=== PATIENT | female | born 1940 | race Caucasian/White ===

== ENCOUNTER 2017-05-09 09:20 | Emergency (ER) | payer MEDICARE, OTHER ==
[~2017-05-09] VITALS: Ht 170.2 cm; Wt 102.1 kg
[~2017-05-09 09:20] MED LIST: ALL DAY ALLERGY10 M3 PO; ASPIRIN EC81 MG PO; COD LIVER OIL1 EAC1 PO; CRESTOR10 MG PO; LEVOTHYROXINE88 MCG PO; LOSARTAN-HCTZ1 EAC2 PO; METFORMIN HCL1000 MG PO; METOPROLOL TART25 MG PO; MULTI VITAMIN1 EACH PO; OSTERA TABLET1 EACH PO; ZETIA10 MG PO
[2017-05-09] MEDS ORDERED: CATAPRES0.1 MG PO (10:47)
--- NOTE | 2017-05-09 20:38 | EKG ---
[facility] [address] [place] [address] Signed Atrial-paced rhythm with prolonged AV conduction Left axis deviation Right bundle branch block Left ventricular hypertrophy with repolarization abnormality Abnormal ECG No previous ECGs available Confirmed by RICHIE DEL ROSARIO MD ([id number]) on 05/09/2017 8:38:40 PM Electronically Signed By: RICHIE DEL ROSARIO MD 05/09/17 2038 PATIENT NAME: YAZAN MCKNIGHT SUSAN Electrocardiogram DATE OF : 38 PHYSICIAN: RICHIE DEL ROSARIO MD REPORT #: [id number] REPORT IS CONFIDENTIAL AND NOT TO BE RELEASED WITHOUT AUTHORIZATION
== END 2017-05-09 10:55 | disposition home or self-care (01) ==
LOC: ED 09:20
DX: I10 Essential (primary) hypertension (principal); R42 Dizziness and giddiness; Z85.3 Personal history of malignant neoplasm of breast; E11.9 Type 2 diabetes mellitus without complications; Z95.0 Presence of cardiac pacemaker; Z90.710 Acquired absence of both cervix and uterus; Z90.13 Acquired absence of bilateral breasts and nipples; Z88.0 Allergy status to penicillin; Z88.5 Allergy status to narcotic agent; Z88.8 Allergy status to other drugs, medicaments and biological substances; Z79.82 Long term (current) use of aspirin; Z79.84 Long term (current) use of oral hypoglycemic drugs; Z79.899 Other long term (current) drug therapy
CPT/HCPCS: 36415; 71010; 80053; 84484; 85025; 93005; 93010; 99283